=== PATIENT | male | born 1975 | race Caucasian/White ===

== ENCOUNTER 2017-03-30 17:33 | Inpatient (IN) | payer OTHER ==
[~2017-03-30] VITALS: Ht 177.8 cm; Wt 109.2 kg
[~2017-03-30 17:33] MED LIST: DILAUDID2 MG PO; DURAGESIC75 MCG TD; OXYCODONE HCL10 MG PO; OXYCONTIN20 MG PO; VALIUM2 MG PO
[2017-03-30 19:08] LABS: HEMATOCRIT 36.9 % (38.0-50.0); MCH 31.3 PG (29.0-34.0); MCHC 34.1 G/DL (30.0-36.0); MCV 91.6 FL (86-99); MEAN PLAT.VOLUME 10.8 uM^3 (9.0-12.4); PLATELET COUNT 233 K/uL (156-360); RBC DIS.WIDTH-CV 12.2 % (11.8-14.6); RBC DIS.WIDTH-SD 40.8 % (39-53); RED BLOOD COUNT 4.03 M/uL (4.00-5.50); WHITE BLOOD COUNT 11.5 K/uL (4.1-10.2)
[2017-03-30 19:19] LABS: CHLORIDE 102 mEq/L (99-109); POTASSIUM 4.2 mEq/L (3.7-5.4); SODIUM 131 mEq/L (136-147)
[2017-03-30 19:21] LABS: GLUCOSE 96 mg/dL (70-99)
[2017-03-30 19:22] LABS: ANION GAP 9 MEQ/L (2-14)
[2017-03-30 19:23] LABS: TOTAL BILIRUBIN 0.5 mg/dL (0.0-1.0)
[2017-03-30 19:25] LABS: ALKALINE PHOSPHATASE 64 IU/L (3-129); GFR ESTIMATE (CALCULATED) 17 mL/min/
[2017-03-30 19:26] LABS: UREA NITROGEN (BUN) 36 mg/dL (9-23)
[2017-03-30 21:17] LABS: ADD MIUA? YES; BILIRUBIN NEGATIVE; BLOOD NEGATIVE; COLOR AMBER ((YELLOW)); GLUCOSE (STRIP) NEGATIVE; KETONES NEGATIVE; LEUKOCYTES NEGATIVE; NITRITE NEGATIVE; PROTEIN (STRIP) 30; SPECIFIC GRAVITY 1.012 (1.000-1.030); UROBILINOGEN 0.2 MG/DL (0.2-1.0)
[2017-03-30 21:20] LABS: BACTERIA RARE /HPF; EPITHELIAL CELLS NONE SEEN /HPF; MUCUS TRACE /LPF; RED BLOOD CELLS 0-5 /HPF (0-5); UCUL ADDED? YES
[2017-03-30] MEDS ORDERED: GABAPENTIN300 MG PO (21:31)
[2017-03-30] MEDS ORDERED: PRILOSEC20 MG PO (21:31)
[2017-03-30] MEDS ORDERED: ERGOCALCIF50000 UNIT PO (21:31)
[2017-03-30] MEDS ORDERED: CYANOCOBALAM1000 MCG PO (21:31)
[2017-03-30] MEDS ORDERED: LISINOPRIL40 MG PO (21:32)
[2017-03-30] MEDS ORDERED: ATENOLOL25 MG PO (21:32)
[2017-03-30] MEDS ORDERED: PROZAC40 MG PO (21:32)
[2017-03-30] MEDS ORDERED: MOTRIN800 MG PO (21:32)
[2017-03-30 22:18] LABS: CHLORIDE 105 mEq/L (99-109); POTASSIUM 4.4 mEq/L (3.7-5.4); SODIUM 134 mEq/L (136-147)
[2017-03-30 22:19] LABS: GLUCOSE 111 mg/dL (70-99)
[2017-03-30 22:21] LABS: ANION GAP 10 MEQ/L (2-14)
[2017-03-30 22:23] LABS: GFR ESTIMATE (CALCULATED) 21 mL/min/
[2017-03-30 22:24] LABS: UREA NITROGEN (BUN) 33 mg/dL (9-23)
[2017-03-30 22:26] LABS: CREATINE KINASE 636 IU/L (1-294)
[2017-03-30 23:42] LABS: AMPHETAMINE NEGATIVE (500 ng/mL); BARBITURATES NEGATIVE (200 ng/mL); BENZODIAZEPINES NEGATIVE (150 ng/mL); COCAINE NEGATIVE (150 ng/mL); INTERNAL CONTROLS VALID? YES; METHADONE NEGATIVE (200 ng/mL); METHAMPHETAMINE NEGATIVE (500 ng/mL); OPIATES (MORPHINE) NEGATIVE (100 ng/mL); OXYCODONE PRESUMPTIVE POSITIVE (100 ng/mL); PHENCYCLIDINE NEGATIVE (25 ng/mL); PROPOXYPHENE NEGATIVE (300 ng/mL); THC CANNABINOIDS NEGATIVE (50 ng/mL); TRICYCLIC ANTIDEPRESSANTS NEGATIVE (300 ng/mL)
[2017-03-31 00:37] VITALS: BP 109/57
[2017-03-31 01:22] LABS: UR CREATININE CONCENTRATION 236.2 MG/DL
[2017-03-31 05:17] VITALS: BP 98/50
[2017-03-31 05:31] LABS: HEMATOCRIT 34.4 % (38.0-50.0); MCH 30.6 PG (29.0-34.0); MCHC 33.1 G/DL (30.0-36.0); MCV 92.2 FL (86-99); PLATELET COUNT 223 K/uL (156-360); RBC DIS.WIDTH-CV 12.1 % (11.8-14.6); RBC DIS.WIDTH-SD 41.1 % (39-53); RED BLOOD COUNT 3.73 M/uL (4.00-5.50); WHITE BLOOD COUNT 8.8 K/uL (4.1-10.2)
[2017-03-31 06:03] LABS: ANION GAP 6 MEQ/L (2-14); CHLORIDE 111 MEQ/L (99-109); CREATINE KINASE 414 IU/L (1-294); GFR ESTIMATE (CALCULATED) 31 mL/min/; GLUCOSE 108 mg/dL (70-99); MAGNESIUM 2.1 mg/dl (1.3-2.7); POTASSIUM 4.7 MEQ/L (3.7-5.4); SAMPLE HEMOLYSIS CHECK 0; SAMPLE ICTERIC CHECK 0; SAMPLE LIPEMIA CHECK 0; SODIUM 138 MEQ/L (136-147); UREA NITROGEN (BUN) 30 mg/dL (9-23)
[2017-03-31 08:20] VITALS: BP 93/50
[2017-03-31 11:47] VITALS: BP 101/55
[2017-03-31 15:04] VITALS: BP 112/52
[2017-03-31 19:30] VITALS: BP 119/56
[2017-04-01] VITALS: BP 113/72
[2017-04-01 03:30] VITALS: BP 118/57
[2017-04-01 06:58] LABS: EOSINOPHIL (%) 0 % (0-5); HEMATOCRIT 41.1 % (38.0-50.0); IMMATURE GRANULOCYTE (%) 0.3 % (0.0-0.7); INSTRUMENT ABS NEUTROPHIL CT 5.9 K/uL; LYMPHOCYTE COUNT 1.3 K/uL (1.0-2.8); MCH 30.3 PG (29.0-34.0); MCHC 33.1 G/DL (30.0-36.0); MCV 91.5 FL (86-99); MEAN PLAT.VOLUME 10.5 uM^3 (9.0-12.4); MONOCYTE (%) 7.8 % (3-12); MONOCYTE COUNT 0.6 K/uL (0-0.8); NEUTROPHIL (%) 74.9 % (45-76); NEUTROPHIL COUNT 5.9 K/uL (1.8-6.4); PLATELET COUNT 226 K/uL (156-360); RBC DIS.WIDTH-CV 11.9 % (11.8-14.6); RBC DIS.WIDTH-SD 40.3 % (39-53); WHITE BLOOD COUNT 7.9 K/uL (4.1-10.2)
[2017-04-01 06:59] LABS: RED BLOOD COUNT 4.49 M/uL (4.00-5.50)
[2017-04-01 07:13] LABS: ANION GAP 5 MEQ/L (2-14); CHLORIDE 116 MEQ/L (99-109); GFR ESTIMATE (CALCULATED) > 59 mL/min/; GLUCOSE 89 mg/dL (70-99); SAMPLE HEMOLYSIS CHECK 0; SAMPLE ICTERIC CHECK 0; SAMPLE LIPEMIA CHECK 0; SODIUM 142 MEQ/L (136-147); UREA NITROGEN (BUN) 17 mg/dL (9-23)
[2017-04-01 09:06] VITALS: BP 130/68
[2017-04-01 11:56] VITALS: BP 132/67
[2017-04-01 12:10] LABS: ANION GAP 4 MEQ/L (2-14); CHLORIDE 111 MEQ/L (99-109); GFR ESTIMATE (CALCULATED) > 59 mL/min/; GLUCOSE 88 mg/dL (70-99); POTASSIUM 4.8 MEQ/L (3.7-5.4); SAMPLE HEMOLYSIS CHECK 0; SAMPLE ICTERIC CHECK 0; SAMPLE LIPEMIA CHECK 0; SODIUM 140 MEQ/L (136-147); UREA NITROGEN (BUN) 18 mg/dL (9-23)
== END 2017-04-01 13:54 | disposition home or self-care (01) | DRG 312 ==
LOC: EME 17:33 → EDOF 22:41 → ENRESERV 22:41 → EDOF 22:58 → ENRESERV 23:05 → 4EAST 03-31 00:16
PROVIDERS: Internal Medicine Nephrology; Physician Assistant; Student in an Organized Health Care Education/Training Program
DX: I95.2 Hypotension due to drugs (principal); T46.5X5A Adverse effect of other antihypertensive drugs, initial encounter; T40.605A Adverse effect of unspecified narcotics, initial encounter; R65.11 Systemic inflammatory response syndrome (SIRS) of non-infectious origin with acute organ dysfunction; N17.9 Acute kidney failure, unspecified; T39.315A Adverse effect of propionic acid derivatives, initial encounter; I10 Essential (primary) hypertension; E87.1 Hypo-osmolality and hyponatremia; G89.4 Chronic pain syndrome; E86.9 Volume depletion, unspecified; K21.9 Gastro-esophageal reflux disease without esophagitis; N20.0 Calculus of kidney; G47.30 Sleep apnea, unspecified; F32.9 Major depressive disorder, single episode, unspecified; Z79.891 Long term (current) use of opiate analgesic; Z23 Encounter for immunization; Z87.891 Personal history of nicotine dependence
CPT/HCPCS: 74176; 76770; 80048 91; 80053; 80069; 81003; 82550; 82570; 83605; 83735; 84133; 84156; 84300; 85025; 85027; 87040; 87086; 89190; 90686; 93005; 99281; 99285; J1644; J7030